=== PATIENT | male | born 1990 | race Caucasian/White ===

== ENCOUNTER 2018-04-06 20:34 | Emergency (ER) | payer OTHER ==
[2018-04-06 21:22] VITALS: BP 147/91; PULSE 118; TEMP 98.2
--- NOTE | 2018-04-06 21:53 | ED ---
General Adult HPI - General Chief complaint: Extremity Injury, Lower Stated complaint: slip & fall-[facility] Time Seen by Provider: 04/06/18 21:30 Source: patient, RN notes reviewed Mode of arrival: ambulatory Limitations: no limitations - History of Present Illness Initial comments: 27-year-old male says to the emergency department for a chief complaint of right knee pain times one week. Patient states that he was at work last week when he slipped on water and fell on his right knee. Patient states he heard a pop in his knee. Patient states he has been walking on it since. Patient states it was painful to bend today so he wanted to get it checked out. Patient denies hitting his head or any other injuries. Patient denies pain in the ankle or foot. Patient denies pain in the right hip or back. No pain in the neck. Patient has no other complaints at this time including shortness of breath, chest pain, abdominal pain, nausea or vomiting, headache, or visual changes. - Related Data Home Medications Medication Instructions Recorded Confirmed Ibuprofen [Motrin Ib] 400 mg PO Q6HR PRN 04/06/18 04/06/18 Previous Rx's Medication Instructions Recorded Ibuprofen [Motrin] 600 mg PO Q8HR PRN #20 tab 04/06/18 Allergies Allergy/AdvReac Type Severity Reaction Status Date / Time No Known Allergies Allergy Verified 04/06/18 21:45 Review of Systems ROS Statement: Those systems with pertinent positive or pertinent negative responses have been documented in the HPI. ROS Other: All systems not noted in ROS Statement are negative. Past Medical History Past Medical History: No Reported History History of Any Multi-Drug Resistant Organisms: None Reported Past Surgical History: No Surgical Hx Reported Past Psychological History: No Psychological Hx Reported Smoking Status: Never smoker Past Alcohol Use History: Occasional Past Drug Use History: None Reported General Exam Limitations: no limitations General appearance: alert, in no apparent distress Respiratory exam: Present: normal lung sounds bilaterally. Absent: respiratory distress, wheezes, rales, rhonchi, stridor Cardiovascular Exam: Present: regular rate, normal rhythm, normal heart sounds. Absent: systolic murmur, diastolic murmur, rubs, gallop, clicks Extremities exam: Present: full ROM (Patient has full range of motion of the right knee at this time.), tenderness (Tenderness to the anterior aspect of the right knee. No tenderness to the posterior aspect. No tenderness in the tib- fib ankle or foot.), normal capillary refill (Refill less than 2 seconds and pedal pulse 2+.), other (Sensation intact in the right lower extremity.). Absent: pedal edema, joint swelling (No swelling around the right knee. No ecchymosis.), calf tenderness (No tenderness in the calf. Negative Silas sign. No increased redness swelling or warmth in the right calf.) Course Vital Signs 04/06/18 21:19 Temperature 98.2 F Pulse Rate 118 H Respiratory 18 Rate Blood Pressure 147/91 O2 Sat by Pulse 96 Oximetry Medical Decision Making - Medical Decision Making 27-year-old male presents to the emergency department for a chief complaint of right lower extremity pain times one week. Patient slipped while at work on the right knee. Patient has been walking on it since but states it was painful to bend today so he wanted to get it checked out. Patient denies any other injuries. On exam patient has full range of motion of the right knee. Patient does have some mild tenderness of the right knee. Pedal pulse 2+ and neurovascular intact. X-ray of the right knee shows a negative exam with no fracture or dislocation. No sign of joint effusion. Joint spaces are normal. Patient will be given an Ayan wrap. He was educated to rest ice and elevate the right knee. He is to follow up with orthopedics in one to 2 days. He is to return to the emergency department if he has any worsening symptoms. Disposition Clinical Impression: Knee pain, right Disposition: HOME SELF-CARE Condition: Good Instructions: Knee Pain (ED) Additional Instructions: Please use Ayan wrap as necessary. Please take Motrin and Tylenol for pain. Try to rest, ice, and elevate the knee. Follow-up with orthopedics in one to 2 days. Return to the emergency department if symptoms are worsening. Prescriptions: Ibuprofen [Motrin] 600 mg PO Q8HR PRN #20 tab PRN Reason: Pain Is patient prescribed a controlled substance at d/c from ED?: No Referrals: Bob Hanna MD [Medical Doctor] - 1-2 days Time of Disposition: 22:37
--- NOTE | 2018-04-06 22:22 | XR ---
EXAMINATION TYPE: XR knee 4V RT DATE OF EXAM: 04/06/2018 COMPARISON: NONE HISTORY: Knee pain TECHNIQUE: 4 views FINDINGS: I see no fracture nor dislocation. Joint spaces are normal. There is no sign of joint effus ion. IMPRESSION: Negative right knee exam.
[2018-04-06 22:54] VITALS: RESP 16
== END 2018-04-06 22:45 | disposition home or self-care (01) ==
LOC: EC 20:34
DX: M25.561 Pain in right knee (principal); W01.0XXA Fall on same level from slipping, tripping and stumbling without subsequent striking against object, initial encounter; Y93.01 Activity, walking, marching and hiking; Y92.69 Other specified industrial and construction area as the place of occurrence of the external cause; Y99.0 Civilian activity done for income or pay
CPT/HCPCS: 99283

== ENCOUNTER 2018-06-07 17:14 | Emergency (ER) | payer OTHER ==
[2018-06-07 17:30] VITALS: RESP 18
[2018-06-07] MEDS ORDERED: DIPH,PERTUS(ACELL)TETVAC-LF 0.5 ML VIAL IM ONE (17:34)
[2018-06-07] MEDS ORDERED: GELATIN SPONGE,ABSORB (SMALL) 1 EACH SPONGE TOPICAL STA (17:34)
--- NOTE | 2018-06-07 17:49 | ED ---
Wound/Laceration HPI - General Chief Complaint: Wound/Laceration Stated Complaint: [facility]-Thumb Lac Time Seen by Provider: 06/07/18 17:36 Source: patient, family Mode of arrival: ambulatory Limitations: no limitations - History of Present Illness Initial Comments: this is a 27-year-old male with no past medical history who presents today for chief complaint of I cut the tip of my right thumb times one hour. 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 Patient throughout the avulsed piece of skin. Patient with the bleeding, denies exposure of underlying structures. Patient denies any bleeding disorders. Patient admitted to pain at the site of the laceration. No pain in the joints of the right thumb or hand , denies numbness, tingling, paresthesia or loss of sensation. patient states tetanus is not up-to-date. Patient denies any recent fever, chills, shortness of breath, chest pain, back pain, abdominal pain, nausea or vomiting, numbness or tingling, dysuria or hematuria, constipation or diarrhea, headaches or visual changes, or any other complaints. - Related Data Home Medications Medication Instructions Recorded Confirmed Ibuprofen [Motrin Ib] 400 mg PO Q6HR PRN 04/06/18 04/06/18 Previous Rx's Medication Instructions Recorded Ibuprofen [Motrin] 600 mg PO Q8HR PRN #20 tab 04/06/18 Allergies Allergy/AdvReac Type Severity Reaction Status Date / Time amoxicillin Allergy Rash/Hives Verified 06/07/18 17:28 Penicillins Allergy Rash/Hives Verified 06/07/18 17:28 Review of Systems ROS Statement: Those systems with pertinent positive or pertinent negative responses have been documented in the HPI. ROS Other: All systems not noted in ROS Statement are negative. Constitutional: Denies: fever, chills Eyes: Denies: eye pain Respiratory: Denies: cough, dyspnea Cardiovascular: Denies: chest pain, palpitations Gastrointestinal: Denies: abdominal pain, nausea, vomiting, diarrhea, constipation, hematemesis Genitourinary: Denies: urgency, dysuria Musculoskeletal: Denies: back pain, joint swelling, arthralgia Skin: Reports: as per HPI Neurological: Denies: headache, weakness, numbness, paresthesias, abnormal gait Hematological/Lymphatic: Denies: easy bleeding Past Medical History Past Medical History: No Reported History History of Any Multi-Drug Resistant Organisms: None Reported Past Surgical History: No Surgical Hx Reported Past Psychological History: No Psychological Hx Reported Smoking Status: Former smoker Past Alcohol Use History: Occasional Past Drug Use History: None Reported General Exam - General Exam Comments Initial Comments: General: The patient is awake and alert, in no distress, and does not appear acutely ill. Eye: Pupils are equal, round and reactive to light, extra-ocular movements are intact. No nystagmus. There is normal conjunctiva bilaterally. No signs of icterus. Ears, nose, mouth and throat: There are moist mucous membranes and no oral lesions. Neck: The neck is supple, there is no tenderness or JVD. Cardiovascular: There is a regular rate and rhythm. No murmur, rub or gallop is appreciated. Respiratory: Lungs are clear to auscultation, respirations are non-labored, breath sounds are equal. No wheezes, stridor, rales, or rhonchi. Musculoskeletal: Normal ROM, no tenderness of the MCP and IP joint of right thumb. Strength 5/5 of MCP and IP joint of right thumb. Sensation intact of all 5 digits of the right hand. radial and ulnar pulses equal bilaterally 2+. less than 2 second capillary refill Neurological: A&O x 3. CN II-XII intact, There are no obvious motor or sensory deficits. Coordination appears grossly intact. Speech is normal. Skin: Skin is warm and dry and no rashes. there is a superficial avulsion to the tip of the right thumb lateral aspect, with no exposure of underlying structures, very small involvement of the tip of the right thumbnail, no involvement of the right . Active bleeding. Psychiatric: Cooperative, appropriate mood & affect, normal judgment. Limitations: no limitations Course Vital Signs 06/07/18 17:28 Temperature 97.8 F Pulse Rate 106 H Respiratory 18 Rate Blood Pressure 107/81 O2 Sat by Pulse 96 Oximetry Medical Decision Making - Medical Decision Making 27-year-old male presenting for avulsion laceration to the tip of the right thumb. Upon examination the avulsion appears superficial, with no exposure of underlying structures or involvement of the nailbed. area cleansed with iodine soak, pressure applied with sterile bandage, arm held above head. Gelfoam was applied to the tip of the right thumb, hemostasis obtained. Due to superficial characteristic of avulsion, I do not feel that x-ray of the right hand is necessary at this time. Sterile bandage applied. Pt discharged with PCP in 1-2 days for wound check. Case discussed in detail with Dr Rodriguez, Pt discharged in stable conditon. Disposition Clinical Impression: Avulsion of skin of thumb Disposition: HOME SELF-CARE Condition: Good Instructions: Skin Avulsion (ED) Is patient prescribed a controlled substance at d/c from ED?: No Referrals: None,Stated [Primary Care Provider] - 1-2 days Time of Disposition: 18:47
[2018-06-07 18:54] VITALS: BP 118/80; PULSE 105; TEMP 98
== END 2018-06-07 19:03 | disposition home or self-care (01) ==
LOC: EC 17:14
DX: S61.011A Laceration without foreign body of right thumb without damage to nail, initial encounter (principal); Z87.891 Personal history of nicotine dependence; Z88.0 Allergy status to penicillin; Z23 Encounter for immunization; W26.0XXA Contact with knife, initial encounter; Y92.000 Kitchen of unspecified non-institutional (private) residence as the place of occurrence of the external cause; Y99.0 Civilian activity done for income or pay
CPT/HCPCS: 90471; 90715; 99282

== ENCOUNTER 2021-12-09 11:19 | Emergency (ER) | payer OTHER ==
[2021-12-09 11:22] VITALS: BP 141/92; PULSE 110; RESP 20; TEMP 97.1
--- NOTE | 2021-12-09 12:24 | ED ---
Back Pain HPI - General Chief Complaint: Back Pain/Injury Stated Complaint: Back Pain Time Seen by Provider: 12/09/21 11:25 Source: patient, RN notes reviewed Limitations: no limitations - History of Present Illness Initial Comments: 31-year-old male presents emergency department with chief back pain. Patient states that started a few days ago he states a rollover can't twisted his back his been having back pain or sense states it's only his lumbar region and denies any radiation to his legs or lower extremities, denies any bowel bladder incontinence or retention of saddle anesthesias. Denies any abdominal complaints. Patient states she does have some pain with increased movement, better at rest denies back. - Related Data Previous Rx's Medication Instructions Recorded Cyclobenzaprine [Flexeril] 10 mg PO TID PRN #15 tab 12/09/21 Ibuprofen [Motrin] 600 mg PO Q8HR PRN #20 tab 12/09/21 predniSONE 50 mg PO DAILY #5 tab 12/09/21 Allergies Allergy/AdvReac Type Severity Reaction Status Date / Time amoxicillin Allergy Unknown Verified 12/09/21 12:38 Childhood Penicillins Allergy Unknown Verified 12/09/21 12:38 Childhood Review of Systems ROS Statement: Those systems with pertinent positive or pertinent negative responses have been documented in the HPI. ROS Other: All systems not noted in ROS Statement are negative. Past Medical History Past Medical History: Asthma History of Any Multi-Drug Resistant Organisms: None Reported Past Surgical History: No Surgical Hx Reported Past Psychological History: No Psychological Hx Reported Smoking Status: Never smoker Past Alcohol Use History: Occasional Past Drug Use History: None Reported General Exam Limitations: no limitations General appearance: alert, in no apparent distress Head exam: Present: atraumatic, normocephalic, normal inspection Eye exam: Present: normal appearance, PERRL, EOMI. Absent: scleral icterus, conjunctival injection, periorbital swelling ENT exam: Present: normal exam, mucous membranes moist Neck exam: Present: normal inspection, full ROM. Absent: tenderness, meningismus, lymphadenopathy Respiratory exam: Present: normal lung sounds bilaterally. Absent: respiratory distress, wheezes, rales, rhonchi, stridor Cardiovascular Exam: Present: normal rhythm, tachycardia, normal heart sounds. Absent: systolic murmur, diastolic murmur, rubs, gallop, clicks GI/Abdominal exam: Present: soft, normal bowel sounds. Absent: distended, tenderness, guarding, rebound, rigid Back exam: Present: full ROM, tenderness, muscle spasm, paraspinal tenderness. Absent: CVA tenderness (R), CVA tenderness (L), vertebral tenderness Neurological exam: Present: alert, oriented X3, CN II-XII intact, reflexes normal. Absent: motor sensory deficit Skin exam: Present: warm, dry, intact, normal color. Absent: rash Course Vital Signs 12/09/21 11:20 Temperature 97.1 F L Pulse Rate 110 H Respiratory 20 Rate Blood Pressure 141/92 O2 Sat by Pulse 97 Oximetry Medical Decision Making - Medical Decision Making 31-year-old presented for low back pain. Patient does have a lumbar strain will be discharged in stable condition is no red flag symptoms patient discharged with anti-inflammatories, muscle relaxers patient will follow-up with orthopedics if needed. Disposition Clinical Impression: Strain of lumbar region Disposition: HOME SELF-CARE Condition: Stable Instructions (If sedation given, give patient instructions): Acute Low Back Pain (ED) Additional Instructions: Please return to the Emergency Department if symptoms worsen or any other concerns. Prescriptions: Cyclobenzaprine [Flexeril] 10 mg PO TID PRN #15 tab PRN Reason: Muscle Spasm Ibuprofen [Motrin] 600 mg PO Q8HR PRN #20 tab PRN Reason: Pain predniSONE 50 mg PO DAILY #5 tab Is patient prescribed a controlled substance at d/c from ED?: No Referrals: None,Stated [Primary Care Provider] - 1-2 days Paulino Barron DO [Doctor of Osteopathic Medicine] - 1-2 days
--- NOTE | 2021-12-09 13:04 | XR ---
Lumbosacral spine HISTORY: Pain 7 views of lumbosacral spine Lumbar vertebral bodies show preserved height, alignment, bone mineralization. There is multilevel sp ondylosis. Loss of disc height is present at intervertebral levels. There is no evident spondylolysis . Sclerosis present in the posterior elements of the lower lumbar spine. Suspect T12 is nonrib-bearin g. IMPRESSION: Degenerative disc disease and facet arthropathy. Correlate with plain film prior to inter vention.
== END 2021-12-09 13:47 | disposition home or self-care (01) ==
LOC: EC 11:19
DX: S39.012A Strain of muscle, fascia and tendon of lower back, initial encounter (principal); J45.909 Unspecified asthma, uncomplicated; Z88.0 Allergy status to penicillin; X50.0XXA Overexertion from strenuous movement or load, initial encounter
CPT/HCPCS: 72110; 99283